=== PATIENT | male | born 1950 | race Hispanic/Latino ===

== ENCOUNTER 2016-11-21 09:46 | Emergency (ER) | payer MEDICAID, OTHER ==
[2016-11-21 10:09] VITALS: BP 124/77; PULSE 59; TEMP 97; O2SAT 97; BMI 28.3
--- NOTE | 2016-11-21 10:59 | ED PDOC ---
HPI: General Adult Time Seen by Provider: 11/21/16 10:46 Chief Complaint (Nursing): Headache Chief Complaint (Provider): high cholestrol Additional Complaint(s): PT in ED wanting to get medicaiton of elevated chlestrol. PT admits he doesn not have a pmd. c/o no other problems. Past Medical History Reviewed: Historical Data, Nursing Documentation, Vital Signs Vital Signs: Last Vital Signs Temp 97 F L 11/21/16 10:08 Pulse 59 L 11/21/16 10:08 Resp BP 124/77 11/21/16 10:08 Pulse Ox 97 11/21/16 10:08 - Medical History PMH: Asthma, Depression, Diabetes, HTN (noncompliant with meds), Hypercholesterolemia Denies: Chronic Kidney Disease - Family History Family History: States: Unknown Family Hx - Home Medications Home Medications: Ambulatory Orders Medication Instructions Recorded Albuterol HFA [Ventolin HFA 90 1 puff IH Q4 PRN #1 unit 01/13/14 mcg/actuation (8 g)] Albuterol 0.5% [Albuterol 0.5% 2.5 mg IH Q6H PRN #3 neb 12/14/14 Inhal Laura (2.5 mg/0.5 ml) UD] Prednisone 20 mg PO BID #10 tab 12/14/14 Albuterol 0.083% [Albuterol 0.083% 2.5 mg IH QID PRN #20 01/05/15 Inhal Laura (2.5 mg/3 ml) UD] Albuterol HFA [Ventolin HFA 90 1 puff IH BID PRN #1 unit 01/05/15 mcg/actuation (8 g)] Albuterol HFA [Ventolin HFA 90 2 puff IH [id number] PRN #1 inhaler 01/14/15 mcg/actuation (8 g)] Prednisone 3 tab PO DAILY #12 tab 01/14/15 Albuterol HFA [Ventolin HFA 90 1 puff IH ASDIR #1 unit 01/21/15 mcg/actuation (8 g)] Prednisone 20 mg PO BID #10 tab 01/21/15 Prednisone 50 mg PO DAILY #4 tab 03/20/15 Albuterol HFA [Ventolin HFA 90 1 puff IH ASDIR #1 unit 04/05/15 mcg/actuation (8 g)] Azithromycin [Zithromax Z-Irineo] 250 mg PO DAILY #1 packet 04/05/15 Prednisone 10 mg PO BID #10 tab 04/05/15 - Allergies Allergies/Adverse Reactions: Allergies Allergy/AdvReac Type Severity Reaction Status Date / Time No Known Allergies Allergy Verified 01/05/15 10:05 Review of Systems ROS Statement: Except As Marked, All Systems Reviewed And Found Negative Constitutional: Negative for: Weakness Physical Exam - Reviewed Nursing Documentation Reviewed: Yes Vital Signs Reviewed: Yes - Physical Exam Appears: Positive for: Well, Non-toxic, No Acute Distress Skin: Positive for: Normal Color, Warm, DRY Cardiovascular/Chest: Positive for: Regular Rate, Rhythm Respiratory: Positive for: CNT, Normal Breath Sounds Neurologic/Psych: Positive for: Alert, Oriented - ECG O2 Sat by Pulse Oximetry: 97 Medical Decision Making Medical Decision Making: Pt will be lulune contact information for clinic. stable for d.c Disposition - Clinical Impression Clinical Impression: Elevated cholesterol - Patient ED Disposition Is Patient to be Admitted: No Counseled Patient/Family Regarding: Need For Followup - Disposition Referrals: [facility] [Outside] [facility] [Outside] Disposition: Routine/Home Disposition Time: 10:59 Condition: STABLE Instructions: Low Fat Diet (DC) Forms: [employer] (Icelandic)
== END 2016-11-21 11:48 | disposition home or self-care (01) ==
LOC: H.ER 09:46
DX: E78.00 Pure hypercholesterolemia, unspecified (principal)

== ENCOUNTER 2018-03-26 13:31 | Emergency (ER) | payer MEDICAID, MEDICARE, OTHER ==
--- NOTE | 2018-03-26 14:24 | ED PDOC ---
HPI: Abdomen Time Seen by Provider: 03/26/18 14:15 Chief Complaint (Nursing): Abdominal Pain History Per: Patient Additional Complaint(s): Pt seen and examined at bedside with attending. 67M PMH Asthma, DM p/w acute onset 3x NBNB emesis after eating "bad food" described as chicken and rice but denies it was unrefrigerated. This is associated with mild abdominal cramping. Otherwise, he denies sick contacts, cough, SOB, chest pain, dysuria, or diarrhea. PMH: Asthma Diabetes SHx: smoker Past Medical History Vital Signs: Last Vital Signs Temp 36.7 C 03/26/18 13:57 Pulse 68 03/26/18 13:57 Resp 16 03/26/18 13:57 BP 151/82 H 03/26/18 13:57 Pulse Ox 95 03/26/18 13:57 - Medical History PMH: Asthma, Diabetes - Family History Family History: States: Unknown Family Hx - Allergies Allergies/Adverse Reactions: Allergies Allergy/AdvReac Type Severity Reaction Status Date / Time No Known Allergies Allergy Verified 03/26/18 13:55 Review of Systems ROS Statement: Except As Marked, All Systems Reviewed And Found Negative Gastrointestinal: Positive for: Vomiting, Abdominal Pain (crampy) Physical Exam - Reviewed Vital Signs Reviewed: Yes - Physical Exam Appears: Positive for: Non-toxic Skin: Positive for: Warm Eye Exam: Positive for: Normal appearance ENT: Positive for: Normal ENT Inspection Neck: Positive for: Supple Cardiovascular/Chest: Positive for: Regular Rate, Rhythm. Negative for: Murmur Respiratory: Positive for: Normal Breath Sounds. Negative for: Crackles, Wheezing Gastrointestinal/Abdominal: Positive for: Bowel Sounds, Soft, Tenderness (mild, diffuse). Negative for: Distended, Rebound Extremity: Positive for: Normal ROM. Negative for: Swelling Neurologic/Psych: Positive for: Alert, Oriented - Laboratory Results Result Diagrams: 03/26/18 14:40 03/26/18 14:40 - ECG O2 Sat by Pulse Oximetry: 95 Medical Decision Making Medical Decision Making: Possible gastroenteritis, but given hx of DM and not on medication will evaluate further with labs. - CBC, CMP - Zofran - PO Challenge 1455 CBC and CMP only significant for mildly elevated glucose. He is resting comfortably - Bentyl - PO Challenge Patient tolerating PO, drinking water and lindsay deb. - CT abd/pelvis w/ IV contrast CT scan without emergent findings, simply fat containing RIH that is not c/w episodes of vomiting. Disposition - Clinical Impression Clinical Impression: Abdominal discomfort, Vomiting - Patient ED Disposition Is Patient to be Admitted: No Discussed With DrRandall: Sherrill Isbell - Disposition Disposition: Transfer of Care Disposition Time: 19:58 Condition: STABLE Forms: [employer] (Nepalese)
[2018-03-26 14:53] LABS: BASO % 0.4 % (0.0-2.0); EOS # 0.3 K/uL (0.0-0.7); EOS % 3.4 % (0.0-4.0); HEMOGLOBIN 14.9 g/dL (12.0-18.0); LYMPH # 1.3 K/uL (1.0-4.3); LYMPH % 17.2 % (20.0-40.0); MEAN CELL VOLUME 93.6 fl (80.0-94.0); MEAN CORPUSCULAR HEMOGLOBIN 30.3 pg (27.0-31.0); MEAN CORPUSCULAR HGB CONC 32.4 g/dL (33.0-37.0); MONO # 0.4 K/uL (0.0-0.8); MONO % 5.3 % (0.0-10.0); NEUT # 5.6 K/uL (1.8-7.0); NEUT % 73.7 % (50.0-75.0); NRBC % 0.2 % (0.0-0.0); RBC 4.91 Mil/uL (4.40-5.90); RED CELL DISTRIBUTION WIDTH 13.8 % (11.5-14.5); WHITE BLOOD COUNT 7.6 K/uL (4.8-10.8)
[2018-03-26 14:57] LABS: ALB/GLOB RATIO 1.1 (1.0-2.1); ALBUMIN 3.5 g/dL (3.5-5.0); ALT/SGPT 26 U/L (21-72); AST/SGOT 20 U/L (17-59); BLOOD UREA NITROGEN 17 mg/dl (9-20); CALCIUM 8.7 mg/dL (8.4-10.2); GFR NON-AFRICAN AMERICAN > 60
[2018-03-26] MEDS ORDERED: Sodium Chloride 0.9% 50 ML IV ONE (17:59)
[2018-03-26] MEDS ORDERED: Iohexol 300 100 ML IJ ONE (17:59)
--- NOTE | 2018-03-26 18:44 | CT ---
Date of service: 03/26/2018 PROCEDURE: CT Abdomen and Pelvis with contrast HISTORY: BLQ pain, vomiting COMPARISON: None. TECHNIQUE: Contrast dose: 94 mL of Omnipaque 300. Axial and reformatted coronal and sagittal CT images of the abdomen and pelvis were obtained after IV contrast administration. Radiation dose: Total exam DLP = 836.29 mGy-cm. This CT exam was performed using one or more of the following dose reduction techniques: Automated exposure control, adjustment of the mA and/or kV according to patient size, and/or use of iterative reconstruction technique. FINDINGS: LOWER THORAX: No evidence of acute pathology at the lung bases. Nreu-ve-lybzbely cardiomegaly seen. No evidence of pleural effusion or pericardial effusion. LIVER: Unremarkable. No gross lesion or ductal dilatation. GALLBLADDER AND BILE DUCTS: Unremarkable. PANCREAS: Unremarkable. No gross lesion or ductal dilatation. SPLEEN: Unremarkable. ADRENALS: Unremarkable. No mass. KIDNEYS AND URETERS: Multiple cystic lesions seen in the left more than right kidney. No evidence of hydronephrosis or hydroureter. The kidneys enhance symmetrically. VASCULATURE: Unremarkable. No aortic aneurysm. Moderate diffuse aortic atherosclerotic calcification and small foci of mural plaque present. BOWEL: Diffuse atherosclerotic calcification without evidence of acute diverticulitis. No obstruction. No gross mural thickening. APPENDIX: Normal appendix. PERITONEUM: Unremarkable. No free fluid. No free air. LYMPH NODES: Unremarkable. No enlarged lymph nodes. BLADDER: Moderate diffuse urinary bladder wall thickening. There is a heterogeneous opacities seen in the bladder which may represent clot or less likely mass lesion. REPRODUCTIVE: The prostate is moderately to markedly enlarged. BONES: No acute fracture. OTHER FINDINGS: None. IMPRESSION: No evidence of cholecystitis pancreatitis or appendicitis. Diffuse colonic diverticulosis without CT evidence of diverticulitis. Moderate diffuse urinary bladder wall thickening suspicious for cystitis. Possible clot or less likely mass in the bladder. If indicated further assessment by ultrasound is suggested. Moderately to markedly enlarged prostate. Fat containing right inguinal hernia.
[2018-03-26 19:51] VITALS: RESP 18
[2018-03-26 19:54] VITALS: O2SAT 95
[2018-03-26 20:37] LABS: SQUAMOUS EPITHIAL 1 /hpf (0-5); URINE BACTERIA OCC (<OCC); URINE BILIRUBIN NEGATIVE (NEGATIVE); URINE BLOOD SMALL (NEGATIVE); URINE CLARITY SLIGHTY-CLOUDY (Clear); URINE COLOR YELLOW (YELLOW); URINE GLUCOSE (UA) 50 mg/dL (Normal); URINE LEUKOCYTE ESTERASE SMALL Leu/uL (Negative); URINE PROTEIN 30 mg/dL (NEGATIVE)
[2018-03-26] MEDS ORDERED: cefTRIAXone (Rocephin) 1 gm Inj ONE (21:12)
[2018-03-26 22:54] VITALS: BP 123/57; PULSE 54; TEMP 98.4
== END 2018-03-26 22:45 | disposition home or self-care (01) ==
LOC: MERGE 13:31 → H.ER 13:31
DX: R10.9 Unspecified abdominal pain (principal); R11.10 Vomiting, unspecified; E11.9 Type 2 diabetes mellitus without complications
CPT/HCPCS: 74177; 80053; 81003; 83735; 85025; 96374; 99284; J0696; J2405; Q9967